=== PATIENT | female | born 1970 | race Caucasian/White ===

== ENCOUNTER 2018-02-09 13:16 | Inpatient (IN) | payer MEDICAID, OTHER ==
[~2018-02-09] VITALS: Ht 160 cm; Wt 88.9 kg
[2018-02-09 13:31] VITALS: BP 102/61
[2018-02-09 14:22] LABS: BASOPHILS # (AUTO) 0.1 K/uL (0.00-0.22); BASOPHILS % (AUTO) 0.6 % (0.0-2.0); EOSINOPHILS # (AUTO) 0.2 K/uL (0-0.4); EOSINOPHILS % (AUTO) 2.5 % (0.0-4.0); HEMATOCRIT 41.5 % (36-48); HEMOGLOBIN 14.1 g/dL (12.0-16.0); LYMPHOCYTES # (AUTO) 2.2 K/uL (2.5-16.5); LYMPHOCYTES % (AUTO) 26.5 % (20.5-51.1); MEAN CORPUSCULAR HEMOGLOBIN 32 pg (27-31); MEAN CORPUSCULAR HGB CONC 34 g/dL (33-37); MEAN CORPUSCULAR VOLUME 95.1 fL (80-94); MONOCYTES # (AUTO) 0.6 K/uL (0.8-1.0); MONOCYTES % (AUTO) 7.2 % (1.7-9.3); NEUTROPHILS # (AUTO) 5.3 K/uL (1.8-7.7); NEUTROPHILS % (AUTO) 63.2 % (42.2-75.2); PLATELET COUNT (AUTO) 350 K/uL (140-450); RED BLOOD CELL COUNT(AUTO) 4.37 MIL/uL (4.20-5.40); RED CELL DISTRIBUTION WIDTH 13.1 % (11.6-13.7); WHITE BLOOD COUNT (AUTO) 8.4 K/uL (4.8-10.8)
[2018-02-09 14:28] LABS: ANION GAP 10.1 (8-16); CARBON DIOXIDE 28.3 mmol/L (21-32); CREATININE 0.5 mg/dL (0.6-1.3); POTASSIUM 4.4 mmol/L (3.5-5.1)
[2018-02-09 14:34] LABS: ALBUMIN 3.5 g/dL (3.4-5.0); TOTAL BILIRUBIN 0.6 mg/dL (0.0-1.0)
--- NOTE | 2018-02-09 14:48 | NUR ---
TO ER BED 4
--- NOTE | 2018-02-09 15:00 | NUR ---
47 YO FEMALE BIB SELF FOR ABDOMINAL PAIN X2WKS, ABD LARGE FIRM, TENDER THROUGHOUT. ACTIVE BS X4. LS CLEAR THROUGHOUT RR EVEN AND UNLABORED. AAOX4 PT ANSWER QUESTIONS IN FULL SENTENCES. , PT DENIES ANY CP, N/V/D, WILL CONTINUE TO MONITOR. ER MADE AWARE. PT POSITIONED FOR COMFORT.
--- NOTE | 2018-02-09 16:00 | NUR ---
PT RESTING IN BED IN NO APPEARENT DISTRESS. WILL CONTINUE TO MONITOR
--- NOTE | 2018-02-09 16:33 | NUR ---
Patient being evaluated by physician at bedside.
[2018-02-09] MEDS ORDERED: MORPHINE SULFATE 4 MG/ML SYR IVP ONE (16:35)
--- NOTE | 2018-02-09 17:00 | NUR ---
Robyn david in [facility] - 02/09/18 at 1752 by MEDS Patient being evaluated by physician at bedside.
--- NOTE | 2018-02-09 17:08 | NUR ---
XRAY AT BED SIDE
[2018-02-09] MEDS ORDERED: MIC5 PO (17:10)
[2018-02-09] MEDS ORDERED: METF500T PO (17:10)
--- NOTE | 2018-02-09 17:30 | NUR ---
CT AT BEDSIDE TO GIVE ORAL CONTRAST
--- NOTE | 2018-02-09 17:55 | NUR ---
PT AMBULATED TO BATHROOM
--- NOTE | 2018-02-09 18:05 | NUR ---
Patient will be admitted to care of DR BOLAND . Admited to M/S. Will go to room 105 B . Belongings list completed. Report to GAIL DANIELSON .
--- NOTE | 2018-02-09 18:05 | NUR ---
RECEIVED BEDSIDE REPORT FROM ER NURSE. PATIENT IS AWAKE, ALERT AND ORIENTEDX4. NO SIGNS OF DISTRESS ON ROOM AIR. IV ON L AC 20G SALINE LOCK. CLEAN, DRY AND INTACT. PATIENT IS AMBULATORY. NO COMPLAINTS OF PAIN AT THIS TIME. PATIENT DRINKING CONTRAST. BED IN LOW POSITION. CALL LIGHT WITHIN REACH. WILL CONTINUE TO MONITOR THE PATIENT
[2018-02-09 18:30] VITALS: BP 121/66
--- NOTE | 2018-02-09 19:10 | NUR ---
GAVE BEDSIDE REPORT TO ORACLE ERP DEVELOPER NURSE. PATIENT ENDORSED IN STABLE CONDITION
--- NOTE | 2018-02-09 19:11 | NUR ---
RECEIVED REPORT FROM AM SHIFT NURSE @ PT BEDSIDE. PT IS ALERT & VERBAL IN MALDIVIAN. NO SIGNS OF DISTRESS. DENIES ANY DISCOMFORT AT THIS TIME. WILL CONTINUE TO MONITOR.
--- NOTE | 2018-02-09 19:50 | NUR ---
PT COMPLETED CONTRAST DRINK. NO C/O NAUSEA. SPOUSE AT BEDSIDE. PT AGREE TO HAVE SPOUSE TRANSLATE RUSSIAN/FRISIAN FOR HER. PT DENIES ANY PAIN AT THIS TIME. CALL LIGHT WITHIN REACH.
[2018-02-09 20:00] VITALS: BP 110/79
--- NOTE | 2018-02-09 20:35 | NUR ---
LEFT VIA W/C WITH [employer] FOR CT SCAN AT THIS TIME. PT SHOWS NO SIGNS OF DISTRESS.
--- NOTE | 2018-02-09 21:05 | NUR ---
BACK FROM CT SCAN AT THIS TIME. PER AIRCRAFT RIGGING AND CONTROLS MECHANIC, PT RECEIVED IV CONTRAST @ 2039. PT TAKING METFORMIN AT HOME. METFORMIN TO BE HELD x2DAYS (UNTIL 02/11/182039). PT ABLE TO TRANSFER FROM WHEELCHAIR TO BED WITH STEADY GAIT. LATE DINNER TRAY GIVEN AT THIS TIME. PT DENIES ANY DISCOMFORT. CALL LIGHT WITHIN REACH.
--- NOTE | 2018-02-09 22:00 | NUR ---
DR. LAW PAGED FOR CT OF ABD/PELVIS RESULT. AWAITING CALL BACK. PT CURRENTLY LYING IN BED, ALERT & VERBAL IN CROATIAN. DENIES ANY DISCOMFORT AT THIS TIME. CALL LIGHT WITHIN REACH.
--- NOTE | 2018-02-09 22:15 | NUR ---
PAGED DR. LAW AGAIN (ON-CALL FOR DR. BOLAND). SUPERVISOR CARTOGRAPHY NOTIFIED OF 2ND CALL ATTEMPT. AWAITING CALL BACK.
[2018-02-09] MEDS ORDERED: ONDANSETRON 4 MG/2 ML VIAL IVP PRN (22:40)
[2018-02-09] MEDS ORDERED: DEXTROSE 50% 50 ML SYR IVP PRN (22:40)
[2018-02-09] MEDS ORDERED: MORPHINE SULFATE 4 MG/ML SYR IVP PRN (22:40)
--- NOTE | 2018-02-09 22:40 | NUR ---
DR. LAW CALLED BACK & NOTIFIED OF CT ABD/PELVIS REPORT. NEW ORDERS GIVEN.
--- NOTE | 2018-02-09 23:00 | NUR ---
PT LYING COMFORTABLY IN BED, AWAKE & VERBAL, DENIES ANY PAIN AT THIS TIME. PT'S DAUGHTER SITTING AT BEDSIDE. ENCOURAGED PT TO CALL FOR ASSISTANCE PRN. VERBALIZED UNDERSTANDING. CALL LIGHT WITHIN REACH.
[2018-02-10] VITALS: BP 123/70
--- NOTE | 2018-02-10 01:37 | NUR ---
PT SLEEPING COMFORTABLY IN BED, RESPIRATIONS EVEN & UNLABORED, FLACC 0. NO SIGNS OF DISTRESS. DAUGHTER SLEEPING ON CHAIR AT BEDSIDE. CALL LIGHT WITHIN REACH.
--- NOTE | 2018-02-10 04:21 | NUR ---
Pt asleep, respirations even & unlabored, no signs of distress. Daughter asleep on chair at bedside. Call light within reach of pt.
--- NOTE | 2018-02-10 06:16 | NUR ---
Pt awake & verbal, denies any pain at this time, no signs of distress. Left AC IV site flushed with NS 5ml, no s/sx of complications. Call light within reach. Daughter at bedside.
[2018-02-10] MEDS: BLOOD GLUCOSE MONITORING 1 DEV DEV FS SCH ×4 (06:19→21:07)
[2018-02-10] MEDS: INSULIN LISPRO SLIDING SCALE 100 UNITS/ML VIAL SUBQ PRN ×4 (06:38→21:09)
[2018-02-10 07:00] LABS: BASOPHILS % (AUTO) 0.5 % (0.0-2.0); EOSINOPHILS # (AUTO) 0.2 K/uL (0-0.4); EOSINOPHILS % (AUTO) 2.3 % (0.0-4.0); HEMOGLOBIN 13.9 g/dL (12.0-16.0); LYMPHOCYTES # (AUTO) 2.2 K/uL (2.5-16.5); LYMPHOCYTES % (AUTO) 27.9 % (20.5-51.1); MEAN CORPUSCULAR HEMOGLOBIN 32 pg (27-31); MEAN CORPUSCULAR HGB CONC 34 g/dL (33-37); MEAN CORPUSCULAR VOLUME 94.7 fL (80-94); MONOCYTES # (AUTO) 0.5 K/uL (0.8-1.0); MONOCYTES % (AUTO) 6.8 % (1.7-9.3); NEUTROPHILS # (AUTO) 4.9 K/uL (1.8-7.7); NEUTROPHILS % (AUTO) 62.5 % (42.2-75.2); PLATELET COUNT (AUTO) 318 K/uL (140-450); RED BLOOD CELL COUNT(AUTO) 4.33 MIL/uL (4.20-5.40); RED CELL DISTRIBUTION WIDTH 12.9 % (11.6-13.7); WHITE BLOOD COUNT (AUTO) 7.8 K/uL (4.8-10.8)
--- NOTE | 2018-02-10 07:15 | NUR ---
REPORT GIVEN TO AM SHIFT NURSE. PT LYING COMFORTABLY IN BED, ALERT & VERBAL, NO SIGNS OF DISTRESS.
[2018-02-10 07:16] LABS: ALBUMIN 3.4 g/dL (3.4-5.0); ANION GAP 12.3 (8-16); CARBON DIOXIDE 29.4 mmol/L (21-32); CREATININE 0.7 mg/dL (0.6-1.3); POTASSIUM 3.7 mmol/L (3.5-5.1); TOTAL BILIRUBIN 0.9 mg/dL (0.0-1.0)
--- NOTE | 2018-02-10 07:20 | NUR ---
RECEIVED PT FROM MERCERIZING RANGE FEEDER NURSE, PT IS AWAKE AND LYING ON THE BED WITH DAUGHTER ON THE BEDSIDE, APPEALS REFEREE RAILS ARE UP AND CALL LIGHT WITHIN REACH. PT IS ALERT AND ORIENTED. PT DENIES PAIN AT THIS TIME. NO SIGN OF DISTRESS NOTED. WILL CONTINUE TO MONITOR.
[2018-02-10 08:00] VITALS: BP 121/76
--- NOTE | 2018-02-10 08:27 | NUR ---
PATIENT HAS BEEN SCREENED AND CATEGORIZED MODERATE NUTRITION RISK. PATIENT WILL BE SEEN WITHIN 3-5 DAYS OF ADMISSION. 02/12/18 02/14/[address]
--- NOTE | 2018-02-10 08:40 | NUR ---
DR. BOLAND CAM TO PT'S ROOM AND ASSESSED AND SPOKE TO PT REGARDING THE PLAN OF CARE. DR. BOLAND TOLD THE PT THAT SHE WILL BE REFERRED TO A GI MD, DR. BLANCO HOUSTON AND PT VERBALIZED UNDERSTANDING.
[2018-02-10] MEDS ORDERED: ENOXAPARIN 40 MG/0.4 ML SYR SUBQ SCH (09:00)
--- NOTE | 2018-02-10 09:08 | NUR ---
CONSENT WAS SIGNED BY THE PT FOR A POSSIBLE EGD TO BE DONE BY DR. HOUSTON, ORDER PER DR. BOLAND.
[2018-02-10] MEDS: ACETAMINOPHEN 325 MG TAB PO PRN ×2 (09:55→20:08)
--- NOTE | 2018-02-10 11:30 | NUR ---
PT IS AWAKE AND TALKING TO SISTER, MEDICATION GIVEN AND PT TOLERATED IT. PT DENIES PAIN. WILL MONITOR.
[2018-02-10] MEDS: METOCLOPRAMIDE 10 MG TAB PO SCH ×2 (11:40→17:30)
[2018-02-10 16:00] VITALS: BP 108/67
--- NOTE | 2018-02-10 16:40 | NUR ---
PT IS AWAKE AND DAUGHTER ON THE BEDSIDE, VITAL SIGNS TAKEN AND BLOOD GLUCOSE CHECK DONE AND RESULT IS 274, GAVE 6 UNITS OF INSULIN. NO SIGN OF DISTRESS NOTED. WILL MONITOR.
--- NOTE | 2018-02-10 17:30 | NUR ---
PT IS AWAKE AND TALKING TO THE DAUGHTER, MEDICATION GIVEN. PT TOLERATED IT, SNEHA ANY PAIN AT THIS TIME.
--- NOTE | 2018-02-10 19:25 | NUR ---
ENDORSED PT TO BELLOWS ASSEMBLER NURSELEANA FOR CONTINUITY OF CARE, PT IS STABLE AT THIS TIME.
--- NOTE | 2018-02-10 19:26 | NUR ---
RECD. RESTING IN BED, AWAKE, A/OX4. RESPIRATION EVEN AND UNLABORED. CONVERSING WITH FAMILY. IV SALINE LOCK AT THE LEFT AC G20, PATENT, INTACT. AMBULATING INDEPENDENTLY TO THE BR. PLAN OF CARE DISCUSSED WITH FAMILY AND PATIENT. VERBALIZED UNDERSTANDING. DENIES PAIN 0/10.
--- NOTE | 2018-02-10 20:00 | NUR ---
Patient's Plan of Care was discussed and reviewed with GIFT SHOP CLERK: LEANA ROSA
[2018-02-10] MEDS: SENNA 8.6 MG TAB PO SCH (21:00)
--- NOTE | 2018-02-10 21:00 | NUR ---
DUE PO MEDICATION GIVEN, ATE 100% OF SNACK.
--- NOTE | 2018-02-10 21:30 | NUR ---
INQUIRED ON DR. BOLAND IF HE WOULD LIKE TO ORDER IV FLUIDS FOR PATIENT, NPO PAST MIDNIGHT FOR EDG IN AM. STATED HE'S NOT ORDERING ANY FLUIDS.
--- NOTE | 2018-02-10 23:45 | NUR ---
NPO PAST MIDNIGHT, VERBALIZED UNDERSTANDING.
[2018-02-11] VITALS: BP 104/50
--- NOTE | 2018-02-11 01:00 | NUR ---
SLEEPING COMFORTABLY IN BED.
--- NOTE | 2018-02-11 04:00 | NUR ---
STILL RESTING IN BED, NO COMPLAINT OF ABDOMINAL PAIN, 0/10.
[2018-02-11] MEDS: BLOOD GLUCOSE MONITORING 1 DEV DEV FS SCH ×3 (06:15→17:04)
[2018-02-11] MEDS: INSULIN LISPRO SLIDING SCALE 100 UNITS/ML VIAL SUBQ PRN (06:25)
--- NOTE | 2018-02-11 07:00 | NUR ---
CONDITION REMAIN STABLE. FOR EGD TODAY AT 1100 SCHEDULED. WILL ENDORSED TO AM NURSE FOR CONTINUITY OF CARE.
--- NOTE | 2018-02-11 07:10 | NUR ---
ENDORSED TO AM NURSE FOR CONTINUITY OF CARE.
[2018-02-11] MEDS: METOCLOPRAMIDE 10 MG TAB PO SCH ×3 (07:25→17:01)
--- NOTE | 2018-02-11 07:30 | NUR ---
PATIENT AWAKE, ALERT, SITTING ON THE BED. RESPIRATION EVEN, UNLABOR ON ROOM AIR. SKIN DRY AND WARM. IV PATENT AND INTACT. DENIED PAIN, SOB. PLAN OF CARE WAS DISCUSSED WITH PATIENT. BED AT LOW POSITION, SIDE RAILS UP. CALL LIGHT WITHIN REACH.
[2018-02-11 08:00] VITALS: BP 123/75
[2018-02-11] MEDS: SENNA 8.6 MG TAB PO SCH (08:59)
[2018-02-11] MEDS ORDERED: PANTOPRAZOLE 40 MG INJ VIAL IVP SCH (09:00)
--- NOTE | 2018-02-11 09:00 | NUR ---
EGD CONSENT WAS OBTAINED AT BEDSIDE, SIGNED BY PATIENT. PATIENT VERBALIZED UNDERSTANDING
[2018-02-11] MEDS ORDERED: fentaNYL 0.05 MG/ML VIAL ONE ×2 (09:35→15:20)
[2018-02-11] MEDS ORDERED: MIDAZOLAM 2 MG/2 ML VIAL ONE ×2 (09:35→15:21)
[2018-02-11] MEDS ORDERED: diphenhydrAMINE 50 MG/ML VIAL ONE ×2 (09:35→15:21)
--- NOTE | 2018-02-11 10:39 | NUR ---
CM NOTE INITIAL REVIEW FAXED TO [facility] [phone] TIFFANIE PH# [phone] LU FRANZ PH# [phone]
--- NOTE | 2018-02-11 12:00 | NUR ---
PATIENT AWAKE, ALERT. RESPIRATION EVEN, UNLABOR ON ROOM AIR. NO DISTRESS NOTED AT THIS TIME. FAMILY AT BEDSIDE. CALL LIGHT WITHIN REACH.
--- NOTE | 2018-02-11 14:22 | NUR ---
PATIENT AWAKE, ALERT. RESPIRATION EVEN, UNLABOR ON ROOM AIR. NO DISTRESS NOTED AT THIS TIME. FAMILY AT BEDSIDE. CALL LIGHT WITHIN REACH
--- NOTE | 2018-02-11 15:18 | NUR ---
ENDORSEMENT GIVEN TO GURU DANIELSON FOR CONTINUITY OF CARE. PATIENT IS STABLE AT THIS TIME
[2018-02-11] MEDS ORDERED: MIDAZOLAM 2 MG/2 ML VIAL IVP ONE (15:55)
[2018-02-11] MEDS ORDERED: fentaNYL 0.05 MG/ML VIAL IVP ONE (15:55)
[2018-02-11 16:00] VITALS: BP 105/61
--- NOTE | 2018-02-11 18:08 | NUR ---
PER DR BOLAND, D/C. PER DR HOUSTON, AWAIT BIOPSY AND REFER TO [facility]. CALLED AND LEFT MESSAGE FOR DR. HOUSTON FOR FURTHER CLARIFICATION.
--- NOTE | 2018-02-11 19:10 | NUR ---
RECEIVED BEDSIDE REPORT FROM RN GURU. PT AWAKE IN BED, NO SIGNS OF ACUTE DISTRESS, IV IN LEFT AC, 20 G, SL, PATENT, DRESSING IN TACT, NO SIGNS OF ACUTE DISTRESS, DENIES PAIN. ORDER FOR D/C. WILL HAVE PT SIGNS D/C PAPER WORK AND REMOVE WRIST BANDS.
--- NOTE | 2018-02-11 19:20 | NUR ---
ENDORSED PT TO THE NIGHTSHIFT NURSE AT BEDSIDE FOR CONTINUITY OF CARE. PT IS IN STABLE CONDITION. PT TO BE DC'D TONIGHT.
[2018-02-11 19:31] VITALS: BP 105/61
--- NOTE | 2018-02-11 20:10 | NUR ---
ALL D/C PAPERWORK SIGNED, REMOVED WRIST BANDS, AND IV IN LEFT AC, CATH INTACT. PT LEFT HOME VIA WC ALONG WITH FAMILY. PT STABLE.
== END 2018-02-11 20:10 | disposition home or self-care (01) | DRG 240 ==
LOC: MED 13:16 → MTU 17:28
PROVIDERS: ADMIT Hospitalist; ATTEND Hospitalist
PROC: 0DB68ZX Excision of Stomach, Via Natural or Artificial Opening Endoscopic, Diagnostic (ICD-10-PCS; principal; 2018-02-11 11:00)
DX: C16.0 Malignant neoplasm of cardia (principal); E11.9 Type 2 diabetes mellitus without complications; K31.9 Disease of stomach and duodenum, unspecified; E66.9 Obesity, unspecified; K59.00 Constipation, unspecified; Z79.84 Long term (current) use of oral hypoglycemic drugs; Z79.899 Other long term (current) drug therapy; Z68.34 Body mass index [BMI] 34.0-34.9, adult
CPT/HCPCS: 36415; 71045; 80053; 82948; 83690; 85025; 86677; 87081; 88305; 88312; 88313; 88342; 96374; 99285; C9113; J1200; J1650; J1815; J2250; J2270; J3010; J7030; J8597; Q0092; Q9967

== ENCOUNTER 2018-08-13 17:19 | Emergency (ER) | payer OTHER ==
[~2018-08-13] VITALS: Ht 160 cm; Wt 76.2 kg
[~2018-08-13 17:19] MED LIST: METF500T PO; MIC5 PO
[2018-08-13 17:26] VITALS: BP 125/77
--- NOTE | 2018-08-13 18:03 | NUR ---
PT REASSESS VSS AT THIS TIME
--- NOTE | 2018-08-13 18:46 | NUR ---
BIB WITH C/O DIFUSE AB PAIN X 5 DAYS RADIATES TO BACK, PATIENT STATES 8/10. LBM: YESTERDAY NIGHT. ON CHEMOTHERAPY DRUGS FOR STOMACH PAIN. NO SOB NOTED. PATIENT POSITIONED FOR COMFORT; HOB ELEVATED; BEDRAILS UP X2; BED DOWN. ER MD MADE AWARE OF PT STATUS. PMH:DM, STOMACH CANCER MED RX: DEXAMETHASONE, FAMOTIDINE, GLIPIZIDE, HYDROCODONE-ACETAMINOPHEN, LORAZEPAM, METFORMIN, ONDANSETRON, PANTOPRAZOLE, PROCHLORPERAZINE, SENNA
--- NOTE | 2018-08-13 19:08 | NUR ---
Pt report given to ERUM Grace. Transfer of care at this time.
--- NOTE | 2018-08-13 19:10 | NUR ---
PATIENT STATES SEVERE EPIGASTRIC PAIN AT THIS TIME. DR VICTOR INFORMED, ORDERS RECIEVED.
[2018-08-13] MEDS ORDERED: MORPHINE SULFATE 4 MG/ML SYR IVP ONE (19:15)
--- NOTE | 2018-08-13 19:43 | NUR ---
PT TAKEN TO CT
--- NOTE | 2018-08-13 19:52 | NUR ---
PT RETURN FROM CT
[2018-08-13 20:11] LABS: BASOPHILS % (AUTO) 0.3 % (0.0-2.0); EOSINOPHILS % (AUTO) 0.1 % (0.0-4.0); HEMATOCRIT 37.9 % (36-48); HEMOGLOBIN 12.8 g/dL (12.0-16.0); LYMPHOCYTES # (AUTO) 2.7 K/uL (2.5-16.5); LYMPHOCYTES % (AUTO) 21.3 % (20.5-51.1); MEAN CORPUSCULAR HEMOGLOBIN 34 pg (27-31); MEAN CORPUSCULAR HGB CONC 34 g/dL (33-37); MEAN CORPUSCULAR VOLUME 102.3 fL (80-94); NEUTROPHILS # (AUTO) 8.8 K/uL (1.8-7.7); NEUTROPHILS % (AUTO) 70.3 % (42.2-75.2); PLATELET COUNT (AUTO) 237 K/uL (140-450); RED BLOOD CELL COUNT(AUTO) 3.71 MIL/uL (4.20-5.40); RED CELL DISTRIBUTION WIDTH 14.7 % (11.6-13.7); WHITE BLOOD COUNT (AUTO) 12.5 K/uL (4.8-10.8)
[2018-08-13 20:30] LABS: APPEARANCE,URINE CLEAR (CLEAR); BILIRUBIN,URINE NEGATIVE (NEGATIVE); BLOOD, URINE NEGATIVE (NEGATIVE); COLOR,URINE YELLOW (YELLOW); LEUKOCYTE ESTERASE ,URINE 1+ (NEGATIVE); NITRITE, URINE NEGATIVE (NEGATIVE); UGLUCOSE NEGATIVE (NEGATIVE)
[2018-08-13 20:38] LABS: ALBUMIN 3.4 g/dL (3.4-5.0); ANION GAP 11.2 (8-16); CARBON DIOXIDE 30.5 mmol/L (21-32); CREATININE 0.6 mg/dL (0.6-1.3); POTASSIUM 3.7 mmol/L (3.5-5.1); TOTAL BILIRUBIN 0.5 mg/dL (0.0-1.0)
[2018-08-13 20:52] LABS: RBC,URINE 0-5 /HPF (0-5)
[2018-08-13 20:53] LABS: CALCIUM OXALATE CRYSTALS,UR 0-10 /HPF (None Seen)
--- NOTE | 2018-08-13 20:58 | NUR ---
DR VICTOR AT BEDSIDE.
[2018-08-13 21:33] VITALS: BP 137/81
--- NOTE | 2018-08-13 21:34 | NUR ---
Patient discharged with v/s stable. Written and verbal after care instructions given and explained. Patient alert, oriented and verbalized understanding of instructions. Ambulatory with steady gait. All questions addressed prior to discharge. ID band removed. Patient advised to follow up with PMD. Rx of NORCO, MOTRIN, CIPRO given. Patient educated on indication of medication including possible reaction and side effects. Opportunity to ask questions provided and answered.
== END 2018-08-13 21:34 | disposition home or self-care (01) ==
LOC: MED 17:19
DX: N39.0 Urinary tract infection, site not specified (principal); E11.9 Type 2 diabetes mellitus without complications; Z79.84 Long term (current) use of oral hypoglycemic drugs; Z85.028 Personal history of other malignant neoplasm of stomach
CPT/HCPCS: 36415; 74176; 80053; 81001; 81025; 83690; 85025; 87086; 96374; 99284; J2270

== ENCOUNTER 2018-11-14 17:59 | Inpatient (IN) | payer OTHER ==
[~2018-11-14] VITALS: Ht 157.5 cm; Wt 65.8 kg
[2018-11-14 18:04] VITALS: BP 128/77
--- NOTE | 2018-11-14 18:09 | NUR ---
TO LOBBY WITH VSS. AWAITING BED IN ED.
--- NOTE | 2018-11-14 18:52 | NUR ---
PT AMBULATED TO ER BED 07
--- NOTE | 2018-11-14 19:01 | NUR ---
PT COMPLAINING OF UPPER EPIGASTRIC ABD PAIN RADIATING TO BILATERAL RIBS . PAIN 8/10 AT TIS TIME. PT HAS HX OF GASTRIC CA STAGE 4, GETS CHEMOTHERAPY EVERY TWO WWEEKS. NO ALLERGIC MEDICATION . PT HONG KONGER SPEAKING, FAMILY AT THE BEDSIDE. PER PT, TAKES METFORMION 500 MG AT HOME. WILL CONTINUE TO MONITOR PT.
--- NOTE | 2018-11-14 19:05 | NUR ---
RECEIVED REPORT FROM GARY DANIELSON. TRANSFER OF CARE AT THIS TIME.
--- NOTE | 2018-11-14 19:27 | NUR ---
Patient being evaluated by Dr. Pitts at bedside.
--- NOTE | 2018-11-14 19:33 | NUR ---
PATIENT UNABLE TO GIVE URINE AT THIS TIME. PATIENT GIVEN WATER CUP.
[2018-11-14 19:38] LABS: BASOPHILS % (AUTO) 0.2 % (0.0-2.0); EOSINOPHILS % (AUTO) 0.3 % (0.0-4.0); HEMATOCRIT 41.5 % (36-48); HEMOGLOBIN 14.5 g/dL (12.0-16.0); LYMPHOCYTES # (AUTO) 0.9 K/uL (2.5-16.5); LYMPHOCYTES % (AUTO) 8.1 % (20.5-51.1); MEAN CORPUSCULAR HEMOGLOBIN 36 pg (27-31); MEAN CORPUSCULAR HGB CONC 35 g/dL (33-37); MEAN CORPUSCULAR VOLUME 101.2 fL (80-94); MONOCYTES % (AUTO) 8.7 % (1.7-9.3); NEUTROPHILS # (AUTO) 9.2 K/uL (1.8-7.7); NEUTROPHILS % (AUTO) 82.7 % (42.2-75.2); PLATELET COUNT (AUTO) 327 K/uL (140-450); RED CELL DISTRIBUTION WIDTH 13.3 % (11.6-13.7); WHITE BLOOD COUNT (AUTO) 11.1 K/uL (4.8-10.8)
--- NOTE | 2018-11-14 19:57 | NUR ---
PATIENT PROVIDED URINE AT THIS TIME.
--- NOTE | 2018-11-14 20:08 | NUR ---
PATIENT TAKEN TO CT VIA PAOLARCINDY WITH TECH.
--- NOTE | 2018-11-14 20:11 | NUR ---
PT TAKEN TO CT
[2018-11-14 20:20] LABS: ANION GAP 11.2 (8-16); CARBON DIOXIDE 28.8 mmol/L (21-32); CREATININE 0.6 mg/dL (0.6-1.3)
--- NOTE | 2018-11-14 20:24 | NUR ---
PT RETURNED FROM CT
[2018-11-14 20:27] LABS: ALBUMIN 3.1 g/dL (3.4-5.0); TOTAL BILIRUBIN 1.8 mg/dL (0.0-1.0)
--- NOTE | 2018-11-14 21:10 | NUR ---
DR CARVER AT BEDSIDE
[2018-11-14] MEDS ORDERED: BEN10 PO (21:15)
[2018-11-14] MEDS ORDERED: HYDR-5122 PO (21:15)
[2018-11-14 21:29] LABS: APPEARANCE,URINE CLEAR (CLEAR); BILIRUBIN,URINE NEGATIVE (NEGATIVE); BLOOD, URINE NEGATIVE (NEGATIVE); COLOR,URINE YELLOW (YELLOW); LEUKOCYTE ESTERASE ,URINE 2+ (NEGATIVE); NITRITE, URINE NEGATIVE (NEGATIVE); PH,URINE 6.5 (5.0-9.0); UGLUCOSE NEGATIVE (NEGATIVE)
[2018-11-14 21:43] LABS: RBC,URINE NONE SEEN /HPF (0-5)
--- NOTE | 2018-11-14 21:53 | NUR ---
16 FR NG TUBE INSERTED TO L NARES, PT VOMITED X1 BUT ABLE TO TOLERATE PROCEDURE. +AUSCULTATION AND GASTRIC RESIDUAL, DR CARVER MADE AWARE, WILL CONFIRM WITH XR.
--- NOTE | 2018-11-14 23:00 | NUR ---
Patient will be admitted to care of DR SOARES. Admited to [facility]. Will go to room 121B. Belongings list completed. Report to CEASAR Mercado RN
[2018-11-14 23:15] VITALS: BP 133/91
--- NOTE | 2018-11-15 | NUR ---
PT ARRIVED VIA W/C ESCORTED BY DAVE DANIELSON, ENDORSEMENT OF CARE ENDORSED AT BEDSIDE.
--- NOTE | 2018-11-15 | NUR ---
PT IN BED V/S FOLLOWS T 98.6 R 20 B/P 118/63 02 97%. PT HAS NO C/O OF PAIN VOICED. CORPORATE MEETING PLANNER PHONE [employer] USED W CORPORATE MEETING PLANNERMARI HARKINS. CALLED CONSUELO RODRÍGUEZ MOTORIZED SQUAD COMMANDING OFFICER ANI RODRÍGUEZ ADMISSION ORDERS. PT NOW ON D51/2 AT 65MLS/HR. SUCTION IS ON LOW INTERMITTEN .
[2018-11-15] MEDS ORDERED: ACETAMINOPHEN 325 MG TAB PO PRN (00:45)
[2018-11-15] MEDS ORDERED: DEXTROSE 50% 50 ML SYR IVP PRN (00:45)
[2018-11-15] MEDS ORDERED: HYDROcodone/APAP 7.5/325 MG 1 TAB PO PRN (00:45)
[2018-11-15] MEDS: DEXT 5% / NACL 0.45% 1,000 ML IV SCH ×2 (01:41→16:09)
--- NOTE | 2018-11-15 03:30 | NUR ---
PT C/O OF PAIN, PT GIVEN 1 TAB NORCO 7.5/325MG . FOR 8 PAIN. PT IS NPO EXCEPT FOR MEDS. PT ABLE TO AMBULATE TO TOILET AND BACK.
[2018-11-15] MEDS: BLOOD GLUCOSE MONITORING 1 DEV DEV FS SCH ×4 (06:32→20:53)
[2018-11-15] MEDS: INSULIN LISPRO SLIDING SCALE 100 UNITS/ML VIAL SUBQ PRN ×3 (06:35→16:38)
--- NOTE | 2018-11-15 07:20 | NUR ---
ENDORSED CARE TO AM STAFF AT BEDSIDE, PT OUT OF SUCTION WAS 300 YELLOW MUCUSY PHLEGM. PT DID NOT VOMIT THIS SHIFT, POSITIVE EFFECT OF PAIN MEDICATION.
--- NOTE | 2018-11-15 07:35 | NUR ---
RECEIVED BED SIDE REPORT FROM COARSE WIRE DRAWER RN. PT SLEEPING IN BED WITH AT BEDSIDE. PT HAS NG TUBE PLACED TO LOW SUCTION. 300CC TOTAL FOR COARSE WIRE DRAWER. PT KHMER SPEAKING, A/O X4, COMPLAINS OF NO PAIN. LAST BM WAS 1WEEK PER PT. L FOREARM 20G RUNNING AT D5 1/2 NS AT 65ML/HR. SKIN INTACT. MEDIPORT ON R CHEST. WILL CONTINUE TO MONITOR
[2018-11-15 08:00] VITALS: BP 119/83
--- NOTE | 2018-11-15 08:10 | NUR ---
SMALL BOWEL STUDIES CURRENTLY BEING DONE ON PT. EXPLAINED TO PT THE PROCEDURE AND REASON WHY WE ARE DOING THIS STUDY. TECH TOLD ME TO NOT START THE LOW SUCTION TO NG TUBE FOR 6 HOURS AFTER COMPLETING PROCEDURE. PT MADE AWARE. PT COMPLAINS OF MINIMAL NAUSEA. WILL NOTIFY WHEN HE ARRIVES. WILL CONTINUE TO MONITOR
--- NOTE | 2018-11-15 11:00 | NUR ---
PT COMPLAINED OF 7/10 PRESSURE LIKE PAIN IN EPIGASTRIC AREA, WILL GIVE MORPHINE PER MD ORDER.
[2018-11-15] MEDS: MORPHINE SULFATE 4 MG/ML SYR IVP PRN ×3 (11:11→20:50)
--- NOTE | 2018-11-15 13:53 | NUR ---
PT COMPLAINING OF 7/10 BURNING EPIGASTRIC PAIN. WILL NOTIFY WHEN HE ARRIVES
[2018-11-15] MEDS ORDERED: ONDANSETRON 4 MG/2 ML VIAL IVP PRN (15:15)
--- NOTE | 2018-11-15 15:18 | NUR ---
HERE TO SEE PT. LET KNOW ABOUT MED RECONCILIATION AND THAT MEDS THAT PT IS TAKING AT HOME HAS NOT BEEN TRANSFERRED TO [facility]. ALSO LET PT KNOW THAT PT IS COMPLAINING OF NAUSEA AND PAIN AND THAT MORPHINE HAS NOT BEEN EFFECTIVE FOR PT. ADDED ELIZABETH TO [facility]
[2018-11-15 16:00] VITALS: BP 130/88
--- NOTE | 2018-11-15 16:30 | NUR ---
PT NG TUBE DISPLACED. MARKINGS FOUND TO BE LOOSE AND SEEMS TO HAVE COME OUT A BIT. MADE AWARE TO NEREIDA MATHEMATICS TEACHER. NEREIDA ADVANCED TUBE FURTHER. PUT IN ORDER TO HAVE STAT CXR DONE TO SEE NG TUBE PLACEMENT.PT COMPLAINS OF VOMITING YELLOW FLUID. EDUCATED PT THAT IT MAY BE D/T NG NOT SUCTIONING AND BECAUSE OF DISPLACEMENT.
--- NOTE | 2018-11-15 17:54 | NUR ---
ABOUT 100CC YELLOW FLUID EMESIS NOTED
--- NOTE | 2018-11-15 18:49 | NUR ---
PT SLEEPING COMFORTABLY IN BED. FAMILY AT BEDSIDE. ATTACHED PT TO SUCTION MEDIUM LEVEL. WILL CONTINUE TO MONITOR
--- NOTE | 2018-11-15 19:25 | NUR ---
RECEIVED ENDORSEMENT FOR ROBERT DANIELSON DAYSHIFT NURSE AT BEDSIDE FOR CONTINUITY OF CARE, PT IN STABLE CONDITION.
--- NOTE | 2018-11-15 19:26 | NUR ---
ENDORSED PT TO TECHNICAL MARKETING CONSULTANT. GAVE BED SIDE REPORT, PT IN STABLE CONDITION
--- NOTE | 2018-11-15 20:00 | NUR ---
PT IN LOW BED WITH SIDE RIALS UP X2 AND CALL VYAS IN REACH. SHE IS AOX3 AND HAS N G TUBE ON LEFT NARE. X RAY CONFIRMATION OF POSITION IS POSITIVE FOR PLACEMENT. PT NG TUBE IS ON INTERMITTED SUCTION AND IS SUCTIONING NEVILLE YELLOW BILE. PT IS HAVING EPISODES OF SPITTING UP BILE AND IS COMPLAINING OF NAUSEA AND PAIN TO UPPER GASTRIC AREA. WILL MEDICATE PT FOR C/O OF SYMPTOMS.
[2018-11-15] MEDS: ONDANSETRON 4 MG/2 ML VIAL IVP PRN (20:48)
--- NOTE | 2018-11-15 21:00 | NUR ---
CALL SERVICE FOR [facility] CALLED TO CHANGE ORDER FOR ZOFRAN. DR. CORDERO CALLED BACK AND IS AGREEABLE TO CHANGE PRN ZOFRAN FOR M 6HRS TO 4 HRS PRN. PT WAS GIVEN PRN/IVP ORDERED ZOFRAN FOR C/O OF NAUSEA, SHE WAS ALSO GIVEN IVP/PRN MORPHINE FOR SEVERE PAIN 7/10 IN UPPER GASTRIC AREA. IV SITE ON LEFT F/ARM 20GUAGE INTACT AND RUNNING D51/2 NS AT 65MLS/HR. IV SITE FLUSHED PATENT WILL MONITOR FOR EFFECT.
[2018-11-16] VITALS: BP 130/93
[2018-11-16] MEDS: MORPHINE SULFATE 4 MG/ML SYR IVP PRN ×3 (00:56→15:52)
[2018-11-16] MEDS: ONDANSETRON 4 MG/2 ML VIAL IVP PRN ×3 (00:56→12:12)
--- NOTE | 2018-11-16 01:00 | NUR ---
PT IN BED C/O OF NAUSEA AND PAIN 12/10. PT GIVEN IVP ZOFRAN AND IVP MORPHINE FOR 12/10 PAIN AND PT SPITING UP BIAL. SUCTION MACHINE REPLACED DUE TO NOT WORKING. PT GIVEN COMMODE AT BEDSIDE AND SHE VOIDED A SMALL AMOUNT X1. V/S FOLLOWS T 97.6 P 107 R 18 B/P 130/93 02 97% ON ROOM AIR. WILL MONITOR FOR PAIN AND NAUSEA RELIEF.
--- NOTE | 2018-11-16 06:35 | NUR ---
PATIENT HAS BEEN SCREENED AND CATEGORIZED HIGH NUTRITION RISK. PATIENT WILL BE SEEN WITHIN 1-2 DAYS OF ADMISSION. 11/15/18-11/16/18 WILLIS HELLER MS, RDN
[2018-11-16] MEDS: INSULIN LISPRO SLIDING SCALE 100 UNITS/ML VIAL SUBQ PRN ×2 (06:49→11:35)
--- NOTE | 2018-11-16 07:00 | NUR ---
PT FINGERSTICK IS 191, GIVEN 2 UNITS OF HUMALOG COVERAGE. PT C/O OF NAUSEA AND EPIGASTRIC PAIN , GIVEN MORPHINE AND ZOFRAN IVP/PRN ORDERED FOR RELIEF OF PAIN AND NAUSEAS.
[2018-11-16] MEDS: BLOOD GLUCOSE MONITORING 1 DEV DEV FS SCH ×2 (07:02→11:31)
--- NOTE | 2018-11-16 07:10 | NUR ---
CARE ENDORSED TO LUIZA DANIELSON DAYSHIFT NURSE AT BEDSIDE FOR CONTINUITY OF CARE, ENDORSED TO REASSESS PAIN MEDICATION. PT IN LOW BED WITH SIDE RAILS UP X2 AOX3 IV SITE ON LEFT F/A INTACT AND RUNNING D51/2 NS ORDERED. PT IN STABLE CONDITION.
--- NOTE | 2018-11-16 07:11 | NUR ---
RECEIVED ENDORSEMENT FROM SECURITY SYSTEM INSTALLER NURSE. PATIENT IS AAOX4, MALAY SPEAKING. RESPIRATIONS ARE EVEN AND UNLABORED ON ROOM AIR. PATIENT DENIES ANY PAIN AT THIS TIME. JOSELITO CATH NOTED. LEFT FA 20G IV INTACT, PATENT, AND INFUSING IVF. PLAN OF CARE WAS REVIEWED WITH PATIENT. PATIENT VERBALIZED UNDERSTANDING. SAFETY MEASURES IN PLACE, CALL LIGHT WITHIN REACH.
[2018-11-16 08:00] VITALS: BP 132/92
[2018-11-16 08:12] LABS: CARBON DIOXIDE 27.3 mmol/L (21-32); CREATININE 0.5 mg/dL (0.6-1.3); POTASSIUM 3.3 mmol/L (3.5-5.1)
[2018-11-16 08:14] LABS: BASOPHILS % (AUTO) 0.2 % (0.0-2.0); EOSINOPHILS # (AUTO) 0.1 K/uL (0-0.4); EOSINOPHILS % (AUTO) 0.5 % (0.0-4.0); HEMATOCRIT 40.7 % (36-48); HEMOGLOBIN 14.2 g/dL (12.0-16.0); LYMPHOCYTES # (AUTO) 1.2 K/uL (2.5-16.5); LYMPHOCYTES % (AUTO) 8.3 % (20.5-51.1); MEAN CORPUSCULAR HEMOGLOBIN 36 pg (27-31); MEAN CORPUSCULAR HGB CONC 35 g/dL (33-37); MEAN CORPUSCULAR VOLUME 101.7 fL (80-94); MONOCYTES # (AUTO) 1.2 K/uL (0.8-1.0); MONOCYTES % (AUTO) 8.7 % (1.7-9.3); NEUTROPHILS # (AUTO) 11.4 K/uL (1.8-7.7); NEUTROPHILS % (AUTO) 82.3 % (42.2-75.2); PLATELET COUNT (AUTO) 363 K/uL (140-450); RED CELL DISTRIBUTION WIDTH 13.1 % (11.6-13.7); WHITE BLOOD COUNT (AUTO) 13.9 K/uL (4.8-10.8)
[2018-11-16 08:14] LABS: MAGNESIUM 2.1 mg/dL (1.8-2.4); PHOSPHORUS 4.9 mg/dL (2.5-4.9)
[2018-11-16 08:28] LABS: PROTHROMBIN TIME 9.9 secs (10.8-13.4)
--- NOTE | 2018-11-16 08:55 | NUR ---
PAGED DR. CORDERO FOR K OF 3.3. ORDERS RECEIVED.
[2018-11-16] MEDS ORDERED: POTASSIUM CHLORIDE 10 MEQ TABER PO SCH (09:15)
[2018-11-16] MEDS: DEXT 5% / NACL 0.45% 1,000 ML IV SCH (09:21)
--- NOTE | 2018-11-16 09:21 | NUR ---
ADMINISTERED SCHEDULED MEDICATIONS. PATIENT DENIES ANY PAIN AT THIS TIME. FAMILY IS PRESENT AT THE BEDSIDE. NO OTHER NEEDS AT THIS TIME.
--- NOTE | 2018-11-16 09:28 | NUR ---
11/16/18 RD INITIAL ASSESSMENT COMPLETED PLEASE REFER TO NUTRITION ASSESSMENT UNDER CARE ACTIVITY FOR ESTIMATED NUTRITIONAL NEEDS. RD RECOMMENDATIONS: 1. CONTINUE NPO MEDICALLY APPROPRIATE PER MD. 2. IF/WHEN MEDICALLY APPROPRIATE, CONSIDER INITIATING NUTRITION; IF ABLE TO TOLERATE PO DIET, CONSIDER CCHO DIET DUE TO HX DM AND INCREASED GLUCOSE LEVELS. IF UNABLE TO TOLERATE PO DIET, CONSIDER ALTERNATIVES ROUTES FOR NUTRITION SUPPORT. 3. CONSULT RDN PRN. 4. RD WILL F/U 2-3 DAYS; HIGH RISK. 5. RDN MAY CONSIDER PROVIDING DM DIET EDUCATION UPON NEXT ASSESSMENT DATE. WILLIS HELLER, , RDN
--- NOTE | 2018-11-16 11:35 | NUR ---
ADMINISTERED SCHEDULED MEDICATIONS. PATIENT DENIES ANY PAIN. EMESIS OF 100 ML.
--- NOTE | 2018-11-16 12:15 | NUR ---
ADMINISTERED ZOFRAN PRN IVP FOR NAUSEA AND VOMITING. NO OTHER NEED AT THIS TIME.
[2018-11-16] MEDS ORDERED: PROMETHAZINE 25 MG/ML VIAL IM PRN (12:30)
[2018-11-16] MEDS ORDERED: HUMSLIDE SUBQ (12:37)
[2018-11-16] MEDS ORDERED: PHE25I IM (12:37)
[2018-11-16] MEDS ORDERED: ACET-1182 PO (12:37)
[2018-11-16] MEDS ORDERED: CEFT1SOL1 IV (12:37)
[2018-11-16] MEDS ORDERED: MORP4SOL10 IVP (12:37)
[2018-11-16] MEDS ORDERED: ONDA2SOL45 IVP (12:37)
--- NOTE | 2018-11-16 13:05 | NUR ---
PER DR. CORDERO FAXED PATIENTS PERTINENT INFORMATION TO [facility] FOR TRANSFER.
--- NOTE | 2018-11-16 14:15 | NUR ---
Spoke to Jhonathan the packing house laborer and got a bed. Patient will go to room 488 B. made aware. charge nurse to call for ambulance transport.
--- NOTE | 2018-11-16 15:12 | NUR ---
PATIENT IS RESTING IN BED. DENIES ANY NAUSEA OR VOMITING AT THIS TIME. PATIENT READY TO BE TRANSFERRED TO [facility]. FAMILY IS PRESENT AT THE BEDSIDE. IS AWARE.
--- NOTE | 2018-11-16 15:20 | NUR ---
ENDORSED TO ERUM LEON FROM [facility]. ANSWERED ALL QUESTIONS. PATIENT READY FOR TRANSFER, AWAITING TRANSPORT.
--- NOTE | 2018-11-16 15:55 | NUR ---
DISCHARGE INSTRUCTIONS GIVEN. ALL QUESTIONS AND CONCERNS ADDRESSED. IV WAS DISCONNECTED FROM IVF. NG TUBE WAS DISCONNECTED FROM SUCTIONED. PATIENT AMBULATED FROM BED TO [facility] WITH ASSISTANCE. PRN MEDICATION GIVEN FOR NAUSEA AND PAIN. SIGNED DISCHARGE PAPERS. PATIENT LEFT UNIT VIA GURNEY WITH TWO TRANSPORTERS. PATIENT IS STABLE AT THIS TIME.
--- NOTE | 2018-11-20 11:25 | NUR ---
SW attempted to contact patient to inform of PCP follow-up appointment. Patient will be seen by Dr. Jean Ulloa on 11/26/2018 at 11:00AM at [address] [place] [address]. PCP's contact information is [phone]. Patient's phone number was disconnected. SW/CM will follow up as needed.
== END 2018-11-16 15:55 | disposition short-term general hospital (02) | DRG 240 ==
LOC: MED 17:59 → MTU 22:45
PROVIDERS: ADMIT Internal Medicine Pulmonary Disease; ATTEND Internal Medicine Pulmonary Disease
PROC: 0D9670Z Drainage of Stomach with Drainage Device, Via Natural or Artificial Opening (ICD-10-PCS; principal; 2018-11-14)
DX: C16.9 Malignant neoplasm of stomach, unspecified (principal); K56.609 Unspecified intestinal obstruction, unspecified as to partial versus complete obstruction; E87.8 Other disorders of electrolyte and fluid balance, not elsewhere classified; E11.65 Type 2 diabetes mellitus with hyperglycemia; E87.1 Hypo-osmolality and hyponatremia; N39.0 Urinary tract infection, site not specified; E86.9 Volume depletion, unspecified; K21.9 Gastro-esophageal reflux disease without esophagitis; Z79.84 Long term (current) use of oral hypoglycemic drugs
CPT/HCPCS: 36415; 71045; 74018; 74250; 80048; 80053; 81001; 82948; 83690; 83735; 84100; 85025; 85610; 85730; 87081; 87086; 99285; J0696; J2270; J2405; J2550; J7060; Q0092

== ENCOUNTER 2018-12-28 10:19 | Emergency (ER) | payer OTHER ==
[~2018-12-28] VITALS: Ht 157.5 cm; Wt 57.2 kg
[~2018-12-28 10:19] MED LIST changes: +ACET-1182 PO; +CEFT1SOL1 IV; +HUMSLIDE SUBQ; -METF500T PO; -MIC5 PO; +MORP4SOL10 IVP; +ONDA2SOL45 IVP; +PHE25I IM
--- NOTE | 2018-12-28 10:30 | NUR ---
PATIENT AMBULATED TO BED 2 AT THIS TIME.
[2018-12-28 10:37] VITALS: BP 110/89
[2018-12-28 10:42] VITALS: BP 110/89
--- NOTE | 2018-12-28 11:01 | NUR ---
PT HAD COLOSTOMY SIX DAYS AGO AT [facility], PT C/O IRRITATATION AND LEAKING TO THE SURGICAL SITE. OSTOMY BAG IN PLACE BUT LEAKING AT EDGES. SKIN ERYTHEMA/IRRITATION NOTED. C/O 8/10 BURNING PAIN FROM THE IRRITATION HX: GASTRIC CANCER STAGE FOUR, DM, AND STOMACH OBSTRUCTION. TX: NORCO
--- NOTE | 2018-12-28 11:19 | NUR ---
PATIENT AND FAMILY VOICING DESIRE TO POSSIBLY LEAVE FOR [facility], WHERE PATIENT GOT THE OSTOMY PROCEDURE DONE 6 DAYS AGO. THEY ARE DISCUSSING AMONGST FAMILY.
[2018-12-28] MEDS ORDERED: NACL 0.9% 1,000 ML IV ONE (11:30)
[2018-12-28] MEDS ORDERED: HYDROcodone/APAP 5/325 MG 1 TAB TAB PO ONE (11:30)
--- NOTE | 2018-12-28 11:40 | NUR ---
Patient does not wish to proceed with medical care recommended by DR. MIRZA. Patient given information related to possible complications, up to and including , which could occur as a result of leaving hospital at this time. Patient verbalizes understanding of risks involved leaving against medical advice. Patient has signed AMA form.
== END 2018-12-28 11:40 | disposition left against medical advice (07) ==
LOC: MED 10:19
DX: K94.03 Colostomy malfunction (principal); E11.9 Type 2 diabetes mellitus without complications; Z79.4 Long term (current) use of insulin; Z79.899 Other long term (current) drug therapy
CPT/HCPCS: 82948; 99282